=== PATIENT | female | born 1990 | race Caucasian/White ===

== ENCOUNTER 2019-01-02 17:13 | Emergency (ER) | payer MEDICAID ==
[2019-01-02 17:37] VITALS: BP 146/87
--- NOTE | 2019-01-02 18:20 | CR ---
[id number] RAD/RAD Chest PA And Lateral EXAM: RAD Chest PA And Lateral CLINICAL DATA: PALPITATIONS COMPARISON: NO PREVIOUS SIMILAR EXAM IS AVAILABLE. FINDINGS: The lungs are clear. The cardiomediastinal contour is normal. The regional bones and soft tissues are unremarkable. IMPRESSION: NO ACUTE PROCESS. Tahir Sofia MD 01/02/19 [id number] Thank you for allowing us to participate in the care of your patient.
[2019-01-02 18:42] LABS: CHLORIDE,CL 104 mmol/L (98-107); SODIUM,NA 142 mmol/L (136-145)
[2019-01-02 18:51] LABS: ANION GAP 14.7 mmol/L (10-20)
--- NOTE | 2019-01-02 20:51 | EDM.PDOC ---
ED HPI GENERAL MEDICAL PROBLEM - General Chief Complaint: Cardiovascular Problem Time Seen by Provider: 01/02/19 17:20 Source of Information: Reports: Patient History Limitations: Reports: No Limitations - History of Present Illness INITIAL COMMENTS - FREE TEXT/NARRATIVE: Presents to ER with complaints of palpitations and chest pressure. States that she has had issues with this in the past, but it has been more frequent recently. States that symptoms are intermittent in nature. She has has an EKG for this in the clinic but no other work-up. Pt. 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 She has not been officially diagnosed. States that she has been extremely fatigued today. No nausea or vomiting. No diaphoresis. She is a smoker. Denies any other PMH or illicit drug use. She is a social drinker. She states that she noticed some bright red blood when she had a BM this AM. No melena. No hematemesis. States that it was an isolated incident. She states that she never has had any echocardiogram, holter study, etc. Onset Date: 01/02/19 - Related Data Allergies Allergy/AdvReac Type Severity Reaction Status Date / Time [place] Allergy Rash Uncoded 02/29/16 20:32 Home Meds: Home Meds ARIPiprazole [Abilify] 2 mg PO DAILY 02/29/16 [History] ClonazePAM [KlonoPIN] 0.5 mg PO BID PRN 02/29/16 [History] Sertraline [Zoloft] 50 mg PO DAILY 02/29/16 [History] Venlafaxine [Effexor] 25 mg PO BID 02/29/16 [History] Past Medical History - Past Health History Medical/Surgical History: Denies Medical/Surgical History Musculoskeletal History: Reports: Back Pain, Chronic Psychiatric History: Reports: Bipolar, Depression, Panic Attack, Suicide Attempt Social & Family History - Tobacco Use Smoking Status *Q: Current Every Day Smoker Years of Tobacco use: 1 Packs/Tins Daily: 0.5 ED ROS GENERAL - Review of Systems Review Of Systems: See Below Constitutional: Reports: No Symptoms HEENT: Reports: No Symptoms Respiratory: Reports: No Symptoms Cardiovascular: Reports: Lightheadedness, Palpitations Endocrine: Reports: No Symptoms GI/Abdominal: Reports: No Symptoms : Reports: No Symptoms Musculoskeletal: Reports: No Symptoms Skin: Reports: No Symptoms Neurological: Reports: No Symptoms Psychiatric: Reports: No Symptoms Hematologic/Lymphatic: Reports: No Symptoms Immunologic: Reports: No Symptoms ED EXAM, GENERAL - Physical Exam Exam: See Below Exam Limited By: No Limitations General Appearance: Alert, WD/WN, No Apparent Distress Eye Exam: Bilateral Eye: EOMI, Normal Fundi, Normal Inspection, PERRL Ears: Normal External Exam, Normal Canal, Hearing Grossly Normal, Normal TMs Nose: Normal Inspection, Normal Mucosa, No Blood Throat/Mouth: Normal Inspection, Normal Lips, Normal Teeth, Normal Gums, Normal Oropharynx, Normal Voice, No Airway Compromise Head: Atraumatic, Normocephalic Neck: Normal Inspection, Supple, Non-Tender, Full Range of Motion Respiratory/Chest: No Respiratory Distress, Lungs Clear, Normal Breath Sounds, No Accessory Muscle Use, Chest Non-Tender Cardiovascular: Normal Peripheral Pulses, Regular Rate, Rhythm, No Edema, No Gallop, No JVD, No Murmur, No Rub Peripheral Pulses: 4+: Radial (L), Radial (R), Dorsalis Pedis (L), Dorsalis Pedis (R) GI/Abdominal: Normal Bowel Sounds, Soft, Non-Tender, No Organomegaly, No Distention, No Abnormal Bruit, No Mass (Female) Exam: Deferred Rectal (Female) Exam: Deferred Back Exam: Normal Inspection, Full Range of Motion, NT Extremities: Normal Inspection, Normal Range of Motion, Non-Tender, Normal Capillary Refill, No Pedal Edema Neurological: Alert, Oriented, CN II-XII Intact, Normal Cognition, Normal Gait, Normal Reflexes, No Motor/Sensory Deficits Psychiatric: Normal Affect, Normal Mood Skin Exam: Warm, Dry, Intact, Normal Color, No Rash Lymphatic: No Adenopathy EKG INTERPRETATION Rhythm: NSR Scott: Normal P-Wave: Present QRS: Normal ST-T: Normal QT: Normal Course - Vital Signs Last Recorded V/S: Last Vital Signs Temp 37.0 C 01/02/19 17:20 Pulse 108 H 01/02/19 17:20 Resp 16 01/02/19 17:20 BP 146/87 H 01/02/19 17:20 Pulse Ox 99 01/02/19 17:20 - Orders/Labs/Meds Labs: Laboratory Tests 01/02/19 01/02/19 01/02/19 Range/Units 18:06 18:06 18:06 WBC 7.0 (4.0-10.0) x10^3/uL RBC 3.77 L (4.00-5.50) x10^6/uL Hgb 11.3 L (12.0-16.0) g/dL Hct 34.9 (33.0-47.0) % MCV 92.6 D (78.0-93.0) fL MCH 30.0 (26.0-32.0) pg MCHC 32.4 (32.0-36.0) g/dL RDW Coeff of Koffi 12.5 (10.0-15.0) % Plt Count 452 H (130-400) x10^3/uL Neut % (Auto) 64.0 (50.0-80.0) % Lymph % (Auto) 28.2 (25.0-50.0) % [place] % (Auto) 7.1 (2.0-11.0) % Eos % (Auto) 0.7 (0.0-4.0) % Baso % (Auto) 0.0 L (0.2-1.2) % PT 10.0 (9.6-11.4) SEC INR 1.0 L (2.0-3.5) Sodium 142 (136-145) mmol/L Potassium 3.7 (3.5-5.1) mmol/L Chloride 104 (98-107) mmol/L Carbon Dioxide 27 (21-32) mmol/L Anion Gap 14.7 (10-20) mmol/L BUN 16 (7-18) mg/dL Creatinine 0.9 (0.55-1.02) mg/dL Est Cr Clr Drug Dosing TNP Estimated GFR (MDRD) > 60 Glucose 87 (74-106) mg/dL Calcium 9.3 (8.5-10.1) mg/dL Corrected Calcium 9.14 (8.5-10.1) mg/dL Total Bilirubin 0.3 (0.2-1.0) mg/dL AST 16 (15-37) U/L ALT 15 (14-59) U/L Alkaline Phosphatase 78 (46-116) U/L Troponin I < 0.017 (<=0.056) ng/mL C-Reactive Protein < 0.2 (<=0.9) mg/dL Total Protein 7.2 (6.4-8.2) g/dL Albumin 4.2 (3.4-5.0) g/dL Globulin 3.0 Albumin/Globulin Ratio 1.40 TSH, Ultra Sensitive 2.346 (0.358-3.74) uIU/mL - Radiology Interpretation Free Text/Narrative:: Chest XR is negative Departure - Departure Time of Disposition: 19:50 Disposition: Home, Self-Care 01 Clinical Impression: Palpitations Instructions: Palpitations, [id number] Referrals: Denisa Swain CORRUGATOR [Primary Care Provider] - Forms: ED Department Discharge Additional Instructions: Home to rest. Follow-up with Denisa BETANCOURT. I suggest undergoing an echocardiogram and holter study. Return to ER if you have persistent palpitations, chest pain or shortness of breath. - Problem List Review Problem List Initiated/Reviewed/Updated: Yes - Assessment/Plan Plan: Home to rest. Follow-up with Denisa BETANCOURT. I suggest undergoing an echocardiogram and holter study. Return to ER if you have persistent palpitations, chest pain or shortness of breath.
== END 2019-01-02 19:31 | disposition home or self-care (01) ==
LOC: VM.ED 17:13
DX: R00.2 Palpitations (principal); F17.210 Nicotine dependence, cigarettes, uncomplicated; F31.9 Bipolar disorder, unspecified; Z91.013 Allergy to seafood; Z79.899 Other long term (current) drug therapy
CPT/HCPCS: 36415; 71046; 80053; 84443; 84484; 85025; 85610; 86140; 93005; 99285-25